=== PATIENT | female | born 1945 | race Caucasian/White ===

== ENCOUNTER 2016-12-22 09:29 | Outpatient (CLI) | payer MEDICARE ==
[2016-12-22 10:28] VITALS: BP 131/81; PULSE 76; RESP 16; TEMP 98
[2016-12-22] MEDS ORDERED: DENOSUMAB 60 MG/ML 1 ML SYRINGE SQ ONE (23:00)
== END 2016-12-22 11:21 | disposition home or self-care (01) ==
LOC: PROCWHC3 09:29
PROVIDERS: ATTEND Family Medicine
DX: M81.0 Age-related osteoporosis without current pathological fracture (principal)
CPT/HCPCS: 96372; J0897

== ENCOUNTER → 2016-12-22 | Outpatient (CLI) | payer MEDICARE ==
--- NOTE | 2016-12-24 08:53 | MM ---
Reason for exam: screening (asymptomatic). Last mammogram was performed 1 year ago. History: Patient is postmenopausal. Family history of breast cancer in mother at age 88. Physical Findings: A clinical breast exam by your physician is recommended on an annual basis and results should be correlated with mammographic findings. MG 3D Screening Mammo W/Cad Bilateral CC and MLO view(s) were taken. Prior study comparison: December 13, 2015, bilateral MG 3d screening mammo w/cad. November 29, 2014, mammogram, performed at [facility]. October 20, 2013, mammogram, performed at [facility]. There are scattered fibroglandular densities. There is no discrete abnormality. ASSESSMENT: Negative, BI-RAD 1 RECOMMENDATION: Routine screening mammogram of both breasts in 1 year.
== END | disposition home or self-care (01) ==
LOC: RADMAMWWP 07:06
PROVIDERS: ATTEND Family Medicine
DX: Z12.31 Encounter for screening mammogram for malignant neoplasm of breast (principal)
CPT/HCPCS: 77063; G0202

== ENCOUNTER → 2017-12-14 | Outpatient (CLI) | payer MEDICARE ==
--- NOTE | 2017-12-14 15:33 | US ---
EXAMINATION TYPE: US thyroid st tissue head/neck DATE OF EXAM: 12/14/2017 COMPARISON: NONE CLINICAL HISTORY: E04.1 Thyroid Nodule. Follow up thyroid nodule GLAND SIZE: Right Lobe: 3.5 x 1.1 x 1.7 cm Overall Parenchyma: homogenous Left Lobe: 3.4 x 1.4 x 1.1 cm Overall Parenchyma: homogeneous Isthmus Thickness: 0.3 cm NODULES RIGHT: # of nodules measured on right: 0 LEFT: # of nodules measured on left: 0 ISTHMUS: # of nodules measured in the isthmus: 0 Bilateral neck scanned, lymph nodes noted Sub-centemeter nodules noted right lobe measuring less than 0.5cm IMPRESSION: Subcentimeter thyroid nodules noted in the right.
== END ==
LOC: RADUSWWP 14:27
PROVIDERS: ATTEND Family Medicine
DX: E04.2 Nontoxic multinodular goiter (principal)
CPT/HCPCS: 76536

== ENCOUNTER → 2017-12-29 | Outpatient (CLI) | payer MEDICARE ==
[~2017-12-29] MED LIST: DENOSUMAB 60 MG/ML 1 ML SYRINGE SQ ONE
== END | disposition home or self-care (01) ==
LOC: PROCWHC3 10:59
PROVIDERS: ATTEND Family Medicine
DX: M81.0 Age-related osteoporosis without current pathological fracture (principal)
CPT/HCPCS: 96372; J0897

== ENCOUNTER → 2018-01-12 | Outpatient (CLI) | payer MEDICARE ==
--- NOTE | 2018-01-13 15:32 | MM ---
Reason for exam: screening (asymptomatic). Last mammogram was performed 1 year and 1 month ago. History: Patient is postmenopausal. Family history of breast cancer in mother at age 88. Physical Findings: A clinical breast exam by your physician is recommended on an annual basis and results should be correlated with mammographic findings. MG 3D Screening Mammo W/Cad Bilateral CC and MLO view(s) were taken. Prior study comparison: December 22, 2016, bilateral MG 3d screening mammo w/cad. December 13, 2015, bilateral MG 3d screening mammo w/cad. There are scattered fibroglandular densities. There is no discrete abnormality. ASSESSMENT: Negative, BI-RAD 1 RECOMMENDATION: Routine screening mammogram of both breasts in 1 year.
== END | disposition home or self-care (01) ==
LOC: RADMAMWWP 07:51
PROVIDERS: ATTEND Family Medicine
DX: Z12.31 Encounter for screening mammogram for malignant neoplasm of breast (principal)
CPT/HCPCS: 77063; 77067

== ENCOUNTER → 2018-02-07 | Outpatient (CLI) | payer MEDICARE ==
[2018-02-07 13:36] LABS: Basophils % (A) 0 %; Eosinophils # (A) 0.2 k/uL (0-0.7); Eosinophils % (A) 2 %; HCT 40.6 % (34.0-46.0); HGB 13.1 gm/dL (11.4-16.0); Lymphocytes # (A) 2.1 k/uL (1.0-4.8); Lymphocytes % (A) 25 %; MCH 28.2 pg (25.0-35.0); MCHC 32.2 g/dL (31.0-37.0); MCV 87.6 fL (80.0-100.0); Monocytes # (A) 0.6 k/uL (0-1.0); Monocytes % (A) 7 %; Neutrophils # (A) 5.2 k/uL (1.3-7.7); Neutrophils % (A) 63 %; Platelet Count 251 k/uL (150-450); RBC 4.64 m/uL (3.80-5.40); RDW 14.5 % (11.5-15.5); WBC 8.2 k/uL (3.8-10.6)
[2018-02-07 13:43] LABS: Albumin 3.9 g/dL (3.5-5.0); Calcium 9.4 mg/dL (8.4-10.2); Potassium 4.8 mmol/L (3.5-5.1); Total Bilirubin 0.5 mg/dL (0.2-1.3); Total Protein 6.6 g/dL (6.3-8.2)
--- NOTE | 2018-02-07 14:04 | CT ---
EXAMINATION TYPE: CT abdomen pelvis wo con DATE OF EXAM: 02/07/2018 COMPARISON: None HISTORY: Abdominal pain, bloody stools CT DLP: 735 mGycm Automated exposure control for dose reduction was used. TECHNIQUE: Helical acquisition of images was performed from the lung bases through the pelvis. FINDINGS: Lack of intravenous and oral contrast limit evaluation of both the hollow and solid viscera . LUNG BASES: Punctate benign hilar granulomas are present. Small hiatal hernia seen. LIVER/GB: Gallbladder wall prominence could relate to chronic gallbladder dysfunction is no right upp er quadrant fat stranding changes are seen and no gross evidence of biliary ductal dilatation is note d. No cholelithiasis. Unenhanced liver is of unremarkable morphology. PANCREAS: Moderate pancreatic parenchymal atrophy is present. No ductal dilatation. SPLEEN: No significant abnormality is seen. ADRENALS: No significant abnormality is seen. KIDNEYS: Probable right renal cyst measures 1.7 cm along the lateral mid pole with extent into the re nal sinus fat. No hydronephrosis of either kidney. FREE AIR: No free air is visualized ADENOPATHY: No greater than 1 cm short axis lymph nodes are present within the abdomen or pelvis. Fe w nonenlarged left pelvic sidewall lymph nodes are likely reactive to the adjacent inflammatory rutherford e. REPRODUCTIVE ORGANS: No significant abnormality is seen URINARY BLADDER: Incompletely distended and incompletely evaluated OSSEOUS STRUCTURES: Asymmetric sclerosis of the right iliac bone appears infiltrative and could be r elated to asymmetric degenerative change although other etiologies possible. Further evaluation with MR could be performed to evaluate for bone marrow replacing process. Other scattered punctate sclerot ic lesions within the pelvis are likely benign. Very mild degenerative changes of the spine are seen. BOWEL: Numerous sigmoid diverticula are present with long segment bowel wall thickening and inflamma tory fat stranding surrounding this in combination with fascial plane reactive thickening. No pericol onic fluid collection to suggest abscess or resultant obstruction. No small bowel dilatation or large bowel dilatation. Appendix is contrast-filled without periappendiceal fat stranding. No free air is identified. IMPRESSION: 1. ACUTE UNCOMPLICATED SIGMOID DIVERTICULITIS. 2. ASYMMETRIC RIGHT ILIAC BONE SCLEROSIS COULD BE DEGENERATIVE ALTHOUGH MR COULD BE PERFORMED TO EVAL UATE FOR INFILTRATIVE BONE MARROW PROCESS. 3. SMALL HIATAL HERNIA. 4. MILD GALLBLADDER WALL THICKENING/PROMINENCE THAT COULD RELATE TO CHRONIC GALLBLADDER DYSFUNCTION A S THERE ARE NO OTHER FINDINGS TO SUGGEST ACUTE CHOLECYSTITIS.
== END | disposition home or self-care (01) ==
LOC: RADCTMAIN 12:46
PROVIDERS: ATTEND Nurse Practitioner Adult Health
DX: K57.32 Diverticulitis of large intestine without perforation or abscess without bleeding (principal); K44.9 Diaphragmatic hernia without obstruction or gangrene; K82.8 Other specified diseases of gallbladder
CPT/HCPCS: 74176; 80053; 85025

== ENCOUNTER → 2018-03-04 | Outpatient (CLI) | payer MEDICARE ==
--- NOTE | 2018-03-07 01:40 | MR ---
EXAMINATION TYPE: MR pelvis wo/w con DATE OF EXAM: 03/04/2018 COMPARISON: CT scan 02/07/2018 HISTORY: Acquired deformity of pelvis / Abnormal CT CONTRAST: Standard multiplanar, multisequence MRI departmental protocol utilizing 7 mL intravenous Gadavist franck olinium contrast. FINDINGS: There is a 4 x 2.5 cm area of low signal within the posterior right ilium adjacent to the s acroiliac joint on the T1 and T2 images. There is no enhancement. There is no expansion. This corresp onds to the area of osteosclerosis evident on the previous CT scan. Sacroiliac joint spaces are marvin l. Proximal femurs and hip joints are intact. There is no evidence of a pelvic mass. There is no free fluid in the pelvis. Bladder distends smoothly. There is no evidence of a soft tissue mass. IMPRESSION: Low signal lesion in the right ilium without enhancement. This has benign features. This is suggestiv e of a benign etiology such as Paget's disease or fibrous dysplasia.
== END | disposition home or self-care (01) ==
LOC: RADMRIMAIN 05:57
PROVIDERS: ATTEND Family Medicine
DX: M89.9 Disorder of bone, unspecified (principal)
CPT/HCPCS: 72197; A9581

== ENCOUNTER 2018-03-17 07:44 | Day surgery (SDC) | payer MEDICARE ==
[2018-03-15 13:35] VITALS: BMI 28.3
[~2018-03-17 07:44] MED LIST changes: -DENOSUMAB 60 MG/ML 1 ML SYRINGE SQ ONE; +LACTATED RINGERS 1,000 ML IV SCH
[2018-03-17 08:12] VITALS: RESP 16; TEMP 97.8
[2018-03-17] MEDS ORDERED: LIDOCAINE 1% 20 ML VIAL (10MG/ML) FOR IV START INTRADERMA ONE (08:19)
[2018-03-17] MEDS ORDERED: PROPOFOL 10 MG/ML 20 ML VIAL IV ONE (08:58)
[2018-03-17] MEDS ORDERED: LIDOCAINE 1% INJ 10MG/ML (20 ML MDV) ONE (08:58)
--- NOTE | 2018-03-17 09:36 | P.PCN ---
Date of Procedure: 03/17/18 Procedure(s) Performed: Procedure: Total colonoscopy. Preoperative diagnosis: Family history of rectal cancer in her mother, and personal history of polyps and recent episode of acute diverticulitis. Postoperative diagnosis: Sigmoid diverticulosis with no evidence of acute diverticulitis, strictures, polyps or cancer. Preparation: HalfLytely prep. Sedation: Was provided by anesthesia. Brief clinical history: The patient is a 72-year-old female who was recently treated for an episode of acute diverticulitis. The patient has family history of rectal cancer in her mother and personal history of polyps I last exam was around 3 years ago. This evaluation is to assess for neoplasia or complicated diverticular disease. Procedure: With the patient on her left lateral decubitus position and after informed consent and adequate sedation, the perianal area was inspected and it did not show any fissures or fistulas. There were no masses felt on digital rectal examination. The Olympus CFQ 160L video colonoscope was then inserted in the rectum in the usual fashion and advanced to the cecum. There were several diverticular orifices seen scattered in the sigmoid but I saw no evidence of acute diverticulitis or strictures. No polyps or tumors were seen or any obvious pathology. I retroflexed endoscope in the rectum before the endoscope was withdrawn. The patient tolerated the procedure well. Plan: The patient was reassured. She will follow up with you as planned. Discussed dietary measures. I am recommending repeat colonoscopy in 5 years.
[2018-03-17 09:51] VITALS: BP 113/71; PULSE 68
== END 2018-03-17 10:16 | disposition home or self-care (01) ==
LOC: ORWHC2ENDO 07:44
DX: K57.30 Diverticulosis of large intestine without perforation or abscess without bleeding (principal); K21.9 Gastro-esophageal reflux disease without esophagitis; Z80.0 Family history of malignant neoplasm of digestive organs; Z86.010 Personal history of colon polyps; F39 Unspecified mood [affective] disorder; Z79.82 Long term (current) use of aspirin; Z79.899 Other long term (current) drug therapy
CPT/HCPCS: 45378; J2001; J2704

== ENCOUNTER → 2018-07-06 | Outpatient (CLI) | payer MEDICARE ==
[~2018-07-06] MED LIST changes: +DENOSUMAB 60 MG/ML 1 ML SYRINGE SQ ONE; -LACTATED RINGERS 1,000 ML IV SCH
[2018-07-06 14:11] VITALS: BP 126/79; PULSE 76; RESP 16; TEMP 97.9
== END ==
LOC: PROCWHC3 13:58
PROVIDERS: ATTEND Family Medicine
DX: M81.0 Age-related osteoporosis without current pathological fracture (principal)
CPT/HCPCS: 96372; J0897

== ENCOUNTER → 2019-01-12 | Outpatient (CLI) | payer MEDICARE ==
[2019-01-12 13:08] VITALS: BP 124/79; PULSE 80; RESP 16; TEMP 98.4
== END ==
LOC: PROCWHC3 12:49
PROVIDERS: ATTEND Nurse Practitioner Adult Health
DX: M81.0 Age-related osteoporosis without current pathological fracture (principal)
CPT/HCPCS: 96372; J0897

== ENCOUNTER → 2019-02-16 | Outpatient (CLI) | payer MEDICARE ==
--- NOTE | 2019-02-17 09:15 | MM ---
Reason for exam: screening (asymptomatic). Last mammogram was performed 1 year and 1 month ago. History: Patient is postmenopausal. Family history of breast cancer in mother at age 88 and breast cancer in paternal grandmother. Physical Findings: A clinical breast exam by your physician is recommended on an annual basis and results should be correlated with mammographic findings. MG 3D Screening Mammo W/Cad Bilateral CC and MLO view(s) were taken. Prior study comparison: January 12, 2018, bilateral MG 3d screening mammo w/cad. December 22, 2016, bilateral MG 3d screening mammo w/cad. The breast tissue is heterogeneously dense. This may lower the sensitivity of mammography. No suspicious abnormality. No significant changes when compared with prior studies. ASSESSMENT: Negative, BI-RAD 1 RECOMMENDATION: Routine screening mammogram of both breasts in 1 year.
== END | disposition home or self-care (01) ==
LOC: RADMAMWWP 13:30
PROVIDERS: ATTEND Family Medicine
DX: Z12.31 Encounter for screening mammogram for malignant neoplasm of breast (principal)
CPT/HCPCS: 77063; 77067

== ENCOUNTER → 2019-07-24 | Outpatient (CLI) | payer MEDICARE ==
[2019-07-24 13:07] VITALS: BP 144/87; PULSE 76; RESP 16; TEMP 97.7
== END | disposition home or self-care (01) ==
LOC: PROCWHC3 13:00
PROVIDERS: ATTEND Family Medicine
DX: M81.0 Age-related osteoporosis without current pathological fracture (principal)
CPT/HCPCS: 96372; J0897

== ENCOUNTER → 2019-09-13 | Outpatient (CLI) | payer MEDICARE ==
--- NOTE | 2019-09-13 15:20 | US ---
EXAMINATION TYPE: US thyroid st tissue head/neck DATE OF EXAM: 09/13/2019 COMPARISON: 12/14/2017 thyroid ultrasound CLINICAL HISTORY: E04.1 Thyroid nodule. Follow up thyroid nodule. GLAND SIZE: Right Lobe: 3.3 x 1.8 x 1.3 cm Overall Parenchyma: homogenous Left Lobe: 3.5 x 1.1 x 1.0 cm Overall Parenchyma: homogeneous Isthmus Thickness: 0.3 cm NODULES RIGHT: # of nodules measured on right: 1 1. 0.4 X 0.4 x 0.2 cm cystic nodule at the lower pole with irregular margins. This nodule is wider than tall and shows no intranodular vascularity. Prior size: 0.4 cm LEFT: # of nodules measured on left: 0 ISTHMUS: # of nodules measured in the isthmus: 0 Bilateral neck scanned, no evidence of lymphadenopathy. IMPRESSION: No interval growth of the 0.4 cm cystic left thyroid nodule. No new suspicious nodules.
== END | disposition home or self-care (01) ==
LOC: RADUSWWP 14:49
PROVIDERS: ATTEND Nurse Practitioner Adult Health
DX: E04.1 Nontoxic single thyroid nodule (principal)
CPT/HCPCS: 76536

== ENCOUNTER → 2020-01-24 | Outpatient (CLI) | payer MEDICARE ==
[~2020-01-24] MED LIST changes: +DENOSUMAB 60 MG/ML 1 ML SYRINGE SQ NR; -DENOSUMAB 60 MG/ML 1 ML SYRINGE SQ ONE
[2020-01-24 11:44] VITALS: BP 130/74; PULSE 90; RESP 16; TEMP 97.9
== END | disposition home or self-care (01) ==
LOC: PROCWHC3 11:19
PROVIDERS: ATTEND Family Medicine
DX: M81.0 Age-related osteoporosis without current pathological fracture (principal)
CPT/HCPCS: 96372; J0897

== ENCOUNTER → 2020-04-25 | Outpatient (CLI) | payer MEDICARE ==
--- NOTE | 2020-04-29 12:22 | MM ---
Reason for exam: screening (asymptomatic). Last mammogram was performed 1 year and 2 months ago. History: Patient is postmenopausal. Family history of breast cancer in mother at age 88 and breast cancer in paternal grandmother. Physical Findings: A clinical breast exam by your physician is recommended on an annual basis and results should be correlated with mammographic findings. MG 3D Screening Mammo W/Cad Bilateral CC and MLO view(s) were taken. Prior study comparison: February 16, 2019, bilateral MG 3d screening mammo w/cad. January 12, 2018, bilateral MG 3d screening mammo w/cad. There are scattered fibroglandular densities. Bilateral moles redemonstrated. No significant changes when compared with prior studies. ASSESSMENT: Negative, BI-RAD 1 RECOMMENDATION: Routine screening mammogram of both breasts in 1 year.
== END | disposition home or self-care (01) ==
LOC: RADMAMWWP 10:10
PROVIDERS: ATTEND Family Medicine
DX: Z12.31 Encounter for screening mammogram for malignant neoplasm of breast (principal)
CPT/HCPCS: 77063; 77067

== ENCOUNTER → 2020-07-30 | Outpatient (CLI) | payer MEDICARE ==
[~2020-07-30] MED LIST changes: -DENOSUMAB 60 MG/ML 1 ML SYRINGE SQ NR; +DENOSUMAB 60 MG/ML 1 ML SYRINGE SQ ONE
[2020-07-30 14:19] VITALS: BP 128/78; PULSE 71; RESP 16; TEMP 98.4
== END | disposition home or self-care (01) ==
LOC: PROCWHC3 13:34
PROVIDERS: ATTEND Family Medicine
DX: M81.0 Age-related osteoporosis without current pathological fracture (principal)
CPT/HCPCS: 96372; J0897

== ENCOUNTER → 2021-01-28 | Outpatient (CLI) | payer MEDICARE ==
[~2021-01-28] MED LIST changes: +DENOSUMAB 60 MG/ML 1 ML SYRINGE SQ NR; -DENOSUMAB 60 MG/ML 1 ML SYRINGE SQ ONE
[2021-01-28 10:28] VITALS: BP 148/81; PULSE 85; RESP 16; TEMP 97.9
== END ==
LOC: PROCWHC3 09:58
PROVIDERS: ATTEND Family Medicine
DX: M81.0 Age-related osteoporosis without current pathological fracture (principal)
CPT/HCPCS: 96372; J0897

== ENCOUNTER → 2021-04-14 | Outpatient (CLI) | payer MEDICARE ==
--- NOTE | 2021-04-14 15:02 | BD ---
EXAMINATION TYPE: Axial Bone Density DATE OF EXAM: 04/14/2021 COMPARISON: NONE CLINICAL HISTORY: Z 78.0 Height: 5 FT 2 1/2 IN Weight: FRAX RISK QUESTIONS: Alcohol (3 or more units per day): NO Family History (Parent hip fracture): NO Glucocorticoids (More than 3mos): NO (Ex: prednisone, prednisolone, methylprednisolone, dexamethasone, and hydrocortisone). History of Fracture in Adulthood: NO Secondary Osteoporosis: 1. Type 1 Diabetes: NO 2. Hyperthyroidism: NO 3. Menopause before 45: NO 4. Malnutrition: NO 5. Chronic liver disease: NO Rheumatoid Arthritis: NO Current Tobacco Use: NO RISK FACTORS HISTORY OF: Surgery to Spine/Hip(right/left)/Wrist (right/left): NO Family History of Osteoporosis: NO Active: NO Diet low in dairy products/other sources of calcium: NO Postmenopausal woman: EARLY 60'S Take estrogen and/or progesterone medications: UNSURE Lost more than 2 inches in height since high school: NO MEDICATIONS: Osteoporosis Medications: YES Which medication: PROLIA How Lon-4 YEARS Additional Medications: PROLIA, DEPRESSION MEDS, Additional History: EXAM MEASUREMENTS: Bone mineral densitometry was performed using the [employer] System. Bone mineral density as measured about the Lumbar spine is: ----- L1-L4(G/cm2): 1.241 T Score Values are as follows: ----- L2: 0.1 ----- L3: 0.9 ----- L4: 0.6 ----- L1-L4: 0.5 PREV DONE ELSEWHERE Bone mineral density about the R hip (g/cm2): 0.781 Bone mineral density about the L hip (g/cm2): 0.801 T Score values are as follows: -----R Neck: -1.9 -----L Neck: -1.7 -----R Total: -1.0 -----L Total: -0.9 PREV DONE ELSEWHERE IMPRESSION: Osteopenia (T Score between -2.5 and -1). There is slightly increased risk of fracture and the patient may be considered for treatment. Re-Screen 2-5 years. NOTE: T-SCORE=SD OF THE YOUNG ADULT MEAN.
== END | disposition home or self-care (01) ==
LOC: RADBDWWP 12:34
PROVIDERS: ATTEND Family Medicine
DX: M81.0 Age-related osteoporosis without current pathological fracture (principal); Z78.0 Asymptomatic menopausal state
CPT/HCPCS: 77080

== ENCOUNTER → 2021-05-13 | Outpatient (CLI) | payer MEDICARE ==
--- NOTE | 2021-05-15 11:38 | MM ---
Reason for exam: screening (asymptomatic). Last mammogram was performed 1 year and 1 month ago. History: Patient is postmenopausal. Family history of breast cancer in mother at age 88 and breast cancer in paternal grandmother at age 40. Physical Findings: A clinical breast exam by your physician is recommended on an annual basis and results should be correlated with mammographic findings. MG 3D Screening Mammo W/Cad Bilateral CC and MLO view(s) were taken. Prior study comparison: April 25, 2020, bilateral MG 3d screening mammo w/cad. February 16, 2019, bilateral MG 3d screening mammo w/cad. There are scattered fibroglandular densities. Bilateral moles. No significant changes when compared with prior studies. ASSESSMENT: Benign, BI-RAD 2 RECOMMENDATION: Routine screening mammogram of both breasts in 1 year.
== END | disposition home or self-care (01) ==
LOC: RADMAMWWP 15:07
PROVIDERS: ATTEND Family Medicine
DX: Z12.31 Encounter for screening mammogram for malignant neoplasm of breast (principal); Z78.0 Asymptomatic menopausal state; Z80.3 Family history of malignant neoplasm of breast
CPT/HCPCS: 77063; 77067

== ENCOUNTER → 2021-08-04 | Outpatient (CLI) | payer MEDICARE | LOC: PROCWHC3 10:55 | PROVIDERS: ATTEND Nurse Practitioner Family | DX: M85.80 Other specified disorders of bone density and structure, unspecified site (principal); M81.0 Age-related osteoporosis without current pathological fracture | CPT/HCPCS: 96372; J0897 ==

== ENCOUNTER → 2022-02-03 | Outpatient (CLI) | payer MEDICARE ==
[2022-02-03 08:20] VITALS: BP 144/73; PULSE 79; RESP 16; TEMP 98.5
== END ==
LOC: PROCWHC3 08:04
PROVIDERS: ATTEND Nurse Practitioner Family
DX: M85.80 Other specified disorders of bone density and structure, unspecified site (principal); M81.0 Age-related osteoporosis without current pathological fracture
CPT/HCPCS: 96372; J0897

== ENCOUNTER → 2022-05-14 | Outpatient (CLI) | payer MEDICARE ==
--- NOTE | 2022-05-14 16:20 | MM ---
Reason for Exam: Screening (asymptomatic). Last screening mammogram was performed 12 month(s) ago. Patient History: Menarche at age 16. First Full-Term at age 25. Postmenopausal. Paternal grandmother had breast cancer, age 40. Mother had breast cancer, age 88. Risk Values: Sarah 5 year model risk: 3.1%. NCI Lifetime model risk: 6.6%. Prior Study Comparison: 02/16/2019 Bilateral Screening Mammogram, [facility]. 04/25/2020 Bilateral Screening Mammogram, [facility]. 05/13/2021 Bilateral Screening Mammogram, [facility]. Tissue Density: There are scattered fibroglandular densities. Findings: Analyzed By CAD. Pattern appears stable. No suspicious groups of microcalcifications, spiculated or lobular masses, architectural distortion or other secondary signs of malignancy are mammographically apparent. Overall Assessment: Benign, BI-RAD 2 Management: Screening Mammogram of both breasts in 1 year. A negative mammogram report should not preclude additional follow up of suspicious palpable abnormalities. Patient should continue monthly self breast exam. A clinical breast exam by your physician is recommended on an annual basis and results should be correlated with mammographic findings. Electronically signed and approved by: Mani Rich D.O. Radiologis
== END | disposition home or self-care (01) ==
LOC: RADMAMWWP 07:08
PROVIDERS: ATTEND Family Medicine
DX: Z12.31 Encounter for screening mammogram for malignant neoplasm of breast (principal); Z78.0 Asymptomatic menopausal state; Z80.3 Family history of malignant neoplasm of breast
CPT/HCPCS: 77063; 77067

== ENCOUNTER → 2022-08-06 | Outpatient (CLI) | payer MEDICARE ==
[~2022-08-06] MED LIST changes: -DENOSUMAB 60 MG/ML 1 ML SYRINGE SQ NR; +DENOSUMAB 60 MG/ML 1 ML SYRINGE SQ ONE
[2022-08-06 07:54] VITALS: BP 143/86; PULSE 81; RESP 16; TEMP 98
== END | disposition home or self-care (01) ==
LOC: PROCWHC3 07:49
PROVIDERS: ATTEND Nurse Practitioner Family
DX: M85.9 Disorder of bone density and structure, unspecified (principal)
CPT/HCPCS: 96372; J0897

== ENCOUNTER → 2023-02-04 | Outpatient (CLI) | payer MEDICARE ==
[~2023-02-04] MED LIST changes: +DENOSUMAB 60 MG/ML 1 ML SYRINGE SQ NR; -DENOSUMAB 60 MG/ML 1 ML SYRINGE SQ ONE
[2023-02-04 12:50] VITALS: BP 146/67; PULSE 82; RESP 16; TEMP 98
== END ==
LOC: PROCWHC3 12:31
PROVIDERS: ATTEND Nurse Practitioner Family
DX: M85.80 Other specified disorders of bone density and structure, unspecified site (principal)
CPT/HCPCS: 96372; J0897

== ENCOUNTER → 2023-05-25 | Outpatient (CLI) | payer MEDICARE ==
--- NOTE | 2023-05-25 10:18 | MM ---
Reason for Exam: Screening (asymptomatic). Last screening mammogram was performed 12 month(s) ago. Patient History: Menarche at age 16. First Full-Term at age 25. Postmenopausal. Paternal grandmother had breast cancer, age 40. Mother had breast cancer, age 88. Risk Values: Sarah 5 year model risk: 3.1%. NCI Lifetime model risk: 6.2%. Prior Study Comparison: 04/25/2020 Bilateral Screening Mammogram, [facility]. 05/13/2021 Bilateral Screening Mammogram, [facility]. 05/14/2022 Bilateral MG 3D screening mammo w/cad, [facility]. Tissue Density: There are scattered fibroglandular densities. Findings: Analyzed By CAD. There is no suspicious group of microcalcifications or new suspicious mass. Overall Assessment: Negative, BI-RAD 1 Management: Screening Mammogram of both breasts in [address] [facility] will attempt to contact patient to return for supplemental views and ultrasound if indicated. Patient should continue monthly self-breast exams. A clinical breast exam by your physician is recommended on an annual basis. This exam should not preclude additional follow-up of suspicious palpable abnormalities. Note on Sarah scores and lifetime risk: 1. A Sarah score greater than 3% is considered moderate risk. If this is the case, consider specialist referral to assess eligibility for a risk reducing agent. 2. If overall lifetime risk for the development of breast cancer is 20% or higher, the patient may qualify for future screening with alternating mammogram and breast MRI. Electronically signed and approved by: Jonnie Dumont DO
== END | disposition home or self-care (01) ==
LOC: RADMAMWWP 07:15
PROVIDERS: ATTEND Family Medicine
DX: Z12.31 Encounter for screening mammogram for malignant neoplasm of breast (principal); Z78.0 Asymptomatic menopausal state; Z80.3 Family history of malignant neoplasm of breast
CPT/HCPCS: 77063; 77067

== ENCOUNTER → 2023-08-09 | Outpatient (CLI) | payer MEDICARE ==
[2023-08-09 11:44] VITALS: BP 143/87; PULSE 64; RESP 16; TEMP 98.2
== END ==
LOC: PROCWHC3 11:28
PROVIDERS: ATTEND Nurse Practitioner Family
DX: M81.0 Age-related osteoporosis without current pathological fracture (principal)
CPT/HCPCS: 96372; J0897

== ENCOUNTER → 2024-02-10 | Outpatient (CLI) | payer MEDICARE ==
[~2024-02-10] MED LIST changes: -DENOSUMAB 60 MG/ML 1 ML SYRINGE SQ NR; +DENOSUMAB 60 MG/ML 1 ML SYRINGE SQ ONE
== END ==
LOC: PROCWHC3 07:32
PROVIDERS: ATTEND Nurse Practitioner Family
DX: M81.0 Age-related osteoporosis without current pathological fracture (principal)
CPT/HCPCS: 96372

== ENCOUNTER → 2024-05-30 | Outpatient (CLI) | payer MEDICARE ==
--- NOTE | 2024-05-30 17:39 | BD ---
EXAMINATION TYPE: Axial Bone Density DATE OF EXAM: 05/30/2024 CLINICAL HISTORY: 79 years old Female. ICD-10 CODE: Z78.0 ASYMPTOMATIC MENOPAUSAL STA , Additional History: Height: 62.5 Weight: 154.5 FRAX RISK QUESTIONS: Alcohol (3 or more units per day): no Family History (Parent hip fracture): no Glucocorticoids (More than 3mos): no (Ex: prednisone, prednisolone, methylprednisolone, dexamethasone, and hydrocortisone). History of Fracture in Adulthood: yes Secondary Osteoporosis: 1. Type 1 Diabetes: no 2. Hyperthyroidism: no 3. Menopause before 45: no 4. Malnutrition: no 5. Chronic liver disease: no Rheumatoid Arthritis: no Current Tobacco Use: no RISK FACTORS HISTORY OF: Surgery to Spine/Hip(right/left)/Wrist (right/left): no MEDICATIONS: Osteoporosis Medications: Prolia How Lon years EXAM MEASUREMENTS: Bone mineral densitometry was performed using the [employer] System. Bone mineral density as measured about the Lumbar spine is: ----- L1-L4(G/cm2): 1.254 T Score Values are as follows: ----- L1: 0.6 ----- L2: 0.2 ----- L3: 0.9 ----- L4: 0.6 ----- L1-L4: 0.6 Z Score Values are as follows: ----- L1: 2.2 ----- L2: 1.8 ----- L3: 2.5 ----- L4: 2.2 ----- L1-L4: 2.2 Bone mineral density has: increased 1.0 % since study of: 04.14.2021 Bone mineral density about the R hip (g/cm2): 0.909 Bone mineral density about the L hip (g/cm2): 0.920 T Score values are as follows: -----R Neck: -1.5 -----L Neck: -1.3 -----R Total: -0.8 -----L Total: -0.7 Z Score values are as follows: -----R Neck: 0.4 -----L Neck: 0.6 -----R Total: 0.9 -----L Total: 1.0 Bone mineral density has: increased 3.0 % since study of: 04.14.2021 FRAX%s: The graph provided illustrates a 18.2% chance for a major osteoporotic fx and a 3.7% chance f or the hips probability for fx in 10 years time. IMPRESSION: Osteopenia (T Score between -2.5 and -1). There is slightly increased risk of fracture and the patient may be considered for treatment. Re-Screen 2-5 years. NOTE: T-SCORE=SD OF THE YOUNG ADULT MEAN. [facility], , 05/30/2024 5:36 PM
--- NOTE | 2024-05-31 17:07 | MM ---
Reason for Exam: Screening (asymptomatic). Last screening mammogram was performed 12 month(s) ago. Patient History: Menarche at age 16. First Full-Term at age 25. Postmenopausal. Paternal grandmother had breast cancer, age 40. Mother had breast cancer, age 88. Risk Values: Sarah 5 year model risk: 3.0%. NCI Lifetime model risk: 5.8%. Prior Study Comparison: 05/13/2021 Bilateral Screening Mammogram, [facility]. 05/14/2022 Bilateral MG 3D screening mammo w/cad, [facility]. 05/25/2023 Bilateral MG 3D screening mammo w/cad, [facility]. Tissue Density: There are scattered areas of fibroglandular density. Findings: Analyzed By CAD. Multiple bilateral moles are redemonstrated. Areas of asymmetric density are unchanged. There is no suspicious group of microcalcifications or new suspicious mass in either breast. Overall Assessment: Benign, BI-RAD 2 Management: Screening Mammogram of both breasts in 1 year. . Patient should continue monthly self-breast exams. A clinical breast exam by your physician is recommended on an annual basis. This exam should not preclude additional follow-up of suspicious palpable abnormalities. Note on Sarah scores and lifetime risk: 1. A Sarah score greater than 3% is considered moderate risk. If this is the case, consider specialist referral to assess eligibility for a risk reducing agent. 2. If overall lifetime risk for the development of breast cancer is 20% or higher, the patient may qualify for future screening with alternating mammogram and breast MRI. [facility], , 05/31/2024 5:04 PM. Electronically signed and approved by: Hillary Taylor M.D. Radiologist
== END | disposition home or self-care (01) ==
LOC: RADMAMWWP 10:56
PROVIDERS: ATTEND Family Medicine
DX: Z12.31 Encounter for screening mammogram for malignant neoplasm of breast (principal); Z78.0 Asymptomatic menopausal state; Z80.3 Family history of malignant neoplasm of breast; R92.323 Mammographic fibroglandular density, bilateral breasts; M85.89 Other specified disorders of bone density and structure, multiple sites
CPT/HCPCS: 77063; 77067; 77080